=== PATIENT | female | born 1960 | race Hispanic/Latino ===

== ENCOUNTER 2021-10-29 18:01 | Emergency (ER) | payer BC ==
[~2021-10-29] VITALS: Ht 157.5 cm; Wt 90.7 kg
[2021-10-29] MEDS ORDERED: DEXAMETHASONE SOD PHOS 10 MG/1 ML VIAL IM STA (19:13)
[2021-10-29] MEDS ORDERED: PREDNISONE20 MG PO (19:21)
[2021-10-29] MEDS ORDERED: VENTOLIN HFA18 GM INH (19:21)
[2021-10-29] MEDS ORDERED: AZITHROMYCIN250 MG PO (19:21)
[2021-10-29] MEDS ORDERED: ONDANSETRON ODT4 MG PO (19:22)
== END 2021-10-29 19:27 | disposition home or self-care (01) ==
LOC: ER 18:46
DX: U07.1 COVID-19 (principal); R06.00 Dyspnea, unspecified
CPT/HCPCS: 99282; J1100